=== PATIENT | female | born 1995 | race Caucasian/White ===

== ENCOUNTER 2024-02-22 16:01 | Inpatient (IN) | payer BC, SELFPAY ==
[2024-02-22 16:26] VITALS: BMI 34.0
[2024-02-22 16:49] VITALS: BP 125/78; PULSE 84; TEMP 37
[2024-02-22] MEDS: miSOPROStoL 25 MCG/0.25 TABLET VAGINAL ×2 (17:46→21:34)
--- NOTE | 2024-02-22 18:03 | PM.OBHPLI ---
OB - H&P: HPI Labor/Induction History of Present Illness Time Seen by Provider: 18:04 Date Seen: 02/22/24 Chief Complaint: The patient is a 28 year old 1 para 0 at 40 5/7 weeks gestation by 7wk US NOT c/w LMP, who presents for induction. Chief complaint: IOL- Postdates : 1 Para: 0 Date of last menstrual period: 05/06/23 Estimated date of delivery: 02/10/24 Gestational age based on last menstrual period: 42 Narrative: Opal Dubon is a 28 year old 1 para 0 at 40 5/7 weeks gestation by 7wk US NOT c/w LMP, who presents for post dates induction. Pt reports feeling well. No contractions. No LOF. No recent illness. History of Present Dating criteria: based on 1st trimester US only care: good care Ultrasounds: normal 1st trimester US and normal mid trimester US Medical complications: none Labs Blood type: A (+) positive Rubella: immune RPR/VDLR: nonreactive GBS status: negative HBsAG: negative Meds Home Medications and Allergies Home Medications ?Medication ?Instructions ?Recorded ?Confirmed ?Type ferrous sulfate 325 mg (65 mg 325 mg PO DAILY 02/22/24 02/22/24 History iron) tablet (Feosol) pren vit comb.1-iron cb-FA-DSS 90 tab PO 02/22/24 History mg-1 mg-50 mg tablet OB - H&P: Exam Physical Exam: Vital signs: Temp Pulse BP 98.6 F 84 125/78 02/22/24 16:49 02/22/24 16:49 02/22/24 16:49 Constitutional: Constitutional: no acute distress Routine HEENT Exam: Head: Present normal inspection Eye: Present normal appearance ENT: Present mucous membranes moist Routine Respiratory Exam: Respiratory: Present CTA bilaterally Routine Cardiovascular Exam: Cardiovascular: RRR Routine Exam: Perineum Description: Normal Detailed Labor and Delivery Exam: Patient Gravid: Yes Dilation (cm): 0 Contraction frequency (min): 5 Fetus (Single): Station: -3 Amniotic Membrane Status: intact Heart Rate Baseline: 150 Monitor Accelerations: Present Monitor Decelerations: None Group Home Variability: Moderate (6-25) Routine Skin Exam: Present intact Routine Neurological Exam: Present alert and oriented X3 Routine Psychiatric Exam: Present normal affect and normal thought process OB - Problem Based A/P Additional Plan (1) Term : Status: Acute Plan G1 at 40 5/7 wks here for induction for postdates -GBS negative -Cervix closed, start vaginal cytotec protocol. Reviewed plan with pt and she was in agreement. All ?'s answered. Delivery/Labor/Induction Plan Plan: induction Induction method: per misoprostol protocol
[2024-02-22 18:07] LABS: Hematocrit 34.3 % (33.0-51.0); Mean Corpuscular HGB Conc 32 gm/dL (32-36); Mean Corpuscular Hemoglobin 29 pg (26-34); Mean Corpuscular Volume 89 fL (80-100); Neutrophils Percent Auto 74.6 % (42.0-72.0); Platelet Count* 194 K/uL (140-440); RDW Coefficient of Variation % 14.7 % (11.5-15.5); Red Blood Count 3.86 m/uL (4.00-5.20); White Blood Count* 11.99 K/uL (4.50-11.00)
[2024-02-22 18:08] LABS: Basophils Percent Auto 0.1 % (0.0-3.0); Eosinophils Percent Auto 1.1 % (0.0-7.0); Immature Granulocytes Pct Auto 0.5 %; Lymphocytes Percent Auto 17.9 % (20-44); Monocytes Percent Auto 5.8 % (0.0-11.0); Slide Review Reflex No
[2024-02-22 21:04] VITALS: BP 122/81; PULSE 77; PULSE 78; TEMP 37.1; O2SAT 98
[2024-02-23] VITALS (85 sets, daily range): BP systolic 93–140; BP diastolic 50–91; PULSE 61–116; RESP 16; TEMP 36.6–37; O2SAT 90–100
[2024-02-23] MEDS: LACTATED RINGERS 1000 ML 1,000 ML 900 ML IV (02:30)
--- NOTE | 2024-02-23 07:16 | P.OBPN_ITS ---
Subjective Date Seen: 02/23/24 Narrative: Patient started induction overnight. Received cytotec x2 then developed frequent contractions and more discomfort. Exam this morning around 0500 was high, posterior and closed. I saw patient in the AM and discussed option for repeat SVE and balloon patient. Patient desired to wait for repeat SVE. She had significant pain overnight with vaginal exam. Encouraged either nitrous or morphine for comfort. Patient became more painful and opted for an epidural around 0900. Patient is more comfortable. Repeat SVE at 1130 was 5/100/-1. Contractions spaced from 1- 2min to 4-5min. Objective Exam: Baseline 140Moderate variability. Accels. No decels. Darek every 4- 5minutes Vital Signs: Last Vital Signs Temp 97.8 F 02/23/24 04:13 Pulse 69 02/23/24 04:13 BP 111/61 02/23/24 04:13 Pulse Ox 98 02/22/24 21:04 Assessment Assessment: induction ongoing Station: -1 Status: Category l Heart Rate Baseline: 150 Monitor Accelerations: Present Monitor Decelerations: None Plan Plan: - Recommend start Pitocin. - Plan for AROM once in active labor - Anticipate .
[2024-02-23] MEDS: LACTATED RINGERS 1000 ML 1,000 ML 995 ML IV (08:55)
[2024-02-23] MEDS: BUPIVACAINE 0.25% PF 10 ML 10 ML ML EPIDURAL (09:41)
[2024-02-23] MEDS: ROPIVACAINE 0.2% 100 ml 100 ML 12 MG EPIDURAL ×2 (09:42→17:20)
--- NOTE | 2024-02-23 09:55 | PM.ANBPRC ---
PFSH PFSH Social History What is your current living situation?: I presently have a place to live Problems where you live: no known problems In the past 12 months, utilities in danger of being shut off: no In past 12 months, lack of transportation kept you from medical appts, meetings, work, or getting things needed for daily living: no In the past 12 mos, have been you worried that your food would run out before you had money to buy more?: never true In the past 12 mos, the food you bought just didn't last and you didn't have money to buy more?: never true Smoking Status: Never smoker How often does anyone, including family, friends and others, physically hurt you: never How often does anyone, including family, friends and others, insult or talk down to you: never How often does anyone, including family, friends and others, threaten you with harm: never How often does anyone, including family, friends and others, scream or curse at you: never Meds Home Medications and Allergies Home Medications ?Medication ?Instructions ?Recorded ?Confirmed ?Type ferrous sulfate 325 mg (65 mg 325 mg PO DAILY 02/22/24 02/22/24 History iron) tablet (Feosol) pren vit comb.1-iron cb-FA-DSS 90 1 tab PO DAILY 02/22/24 02/23/24 History mg-1 mg-50 mg tablet Allergies Allergy/AdvReac Type Severity Reaction Status Date / Time No Known Drug Allergies Allergy Verified 02/23/24 07:03 Results Labs Labs: Laboratory Results - last 24 hr 02/22/24 18:04 WBC 11.99 H RBC 3.86 L Hgb 11.0 L Hct 34.3 MCV 89 MCH 29 MCHC 32 RDW Coeff of Janna 14.7 Plt Count 194 Neut % (Auto) 74.6 H Lymph % (Auto) 17.9 L [place] % (Auto) 5.8 Eos % (Auto) 1.1 Baso % (Auto) 0.1 Neut # (Auto) 8.90 H Lymph # (Auto) 2.10 [place] # (Auto) 0.70 Eos # (Auto) 0.10 Baso # (Auto) 0.00 Abs Immat Gran (auto) 0.10 Imm/Tot Granulo (auto) 0.5 Blood Type A Positive Antibody Screen NEGATIVE Vital Signs Vital Signs: Last Vital Signs Temp 98.5 F 02/23/24 07:33 Pulse 68 02/23/24 09:52 BP 127/78 02/23/24 09:52 Pulse Ox 100 02/23/24 09:50 Weight: 89.868 kg Height: 162.56 cm Anesthesia Procedures Epidural Insertion Patient Location: OB Start Time: 09:15 Stop Time: 09:51 Start Date: 02/23/24 Stop Date: 02/23/24 Reason for Block: procedure for pain Patient Position: sitting Performed By: Anthony Dumas Preanesthetic Checklist: IV checked, risks and benefits discussed, monitors and equipment checked, pre-op evaluation, timeout performed and anesthesia consent Prep: chlorhexidine gluconate Monitoring: blood pressure monitoring, continuous pulse oximetry and heart rate Approach: midline Vertebral Space: lumbar (1-5) Epidural Technique: KATY saline Needle Type: Tuohy needle Injection Technique: continuous catheter Needle gauge: 17 Needle Length (cm): 10 cm Needle Insertion Depth (cm): 8 Catheter Gauge: 19 Catheter Type: multi-orifice Catheter at skin depth (cm): 14 Test Dose Result: negative and lidocaine 1.5% with epinephrine 1 to 200,000
[2024-02-23] MEDS: LACTATED RINGERS 1000 ML 1,000 ML 125 ML IV ×2 (10:00→18:00)
[2024-02-23] MEDS: PHENYLEPHRINE 100 MCG/ML SYRINGE IVP (11:04)
[2024-02-23] MEDS: OXYTOCIN 30 unit/500 ML in NS 30 UNIT/500 ML BAG IVPB (13:33)
--- NOTE | 2024-02-23 20:51 | P.OBPN_ITS ---
Subjective Date Seen: 02/23/24 Narrative: Patient complete at 1729. Attempted AROM at that time. This was unsuccessful and planned to rupture during pushing if did not SROM. Patient started pushing at 1743. Patient has been pushing effectively. There is quite a bit of caput but suspect baby has poor position (suspect ROP). FHT is category 2 with minimal variability at times, occasionally improves to moderate variability with position changes and breaks from pushing. Contraction are regular. Patient does have some feeling but primarily prompted by staff to push. Objective Exam: FHT: Minimal variability, baseline 150 bpm, occasional accels, occasional late decels. Darek every 4 minutes. SVE: complete, +1 to +2, caput present Vital Signs: Last Vital Signs Temp 98.6 F 02/23/24 19:30 Pulse 95 02/23/24 20:37 Resp 16 02/23/24 18:16 BP 123/83 02/23/24 20:37 Pulse Ox 100 02/23/24 18:29 Assessment Assessment: active labor Station: +1 Status: Category ll Heart Rate Baseline: 150 Care Home Variability: Minimal (3-5) Monitor Accelerations: Present Monitor Decelerations: Late (occasional) Plan Plan: Patient has been pushing for over 3 hours, considering alternate options include vacuum or . Patient and baby are tolerating at this time, ok to continue current course for .
--- NOTE | 2024-02-23 22:33 | PM.OBPNL ---
Subjective Date Seen: 02/23/24 Narrative: Reviewed strip patient had minimal variability since about 1900 with occasional late decels - category II. Patient is tired and no longer pushing effectively. I recommend patient stop pushing. I consulted TITLE CURATIVE SPECIALIST to review and make appropriate recommendations for safe delivery. Dr Velázquez at bedside, recommended Caesarian delivery. Objective Vital Signs: Last Vital Signs Temp 98.6 F 02/23/24 22:18 Pulse 82 02/23/24 22:10 Resp 16 02/23/24 18:16 BP 111/56 L 02/23/24 22:10 Pulse Ox 100 02/23/24 18:29 Assessment Station: +1 Status: Category ll Heart Rate Baseline: 150 Senior Living Variability: Minimal (3-5) Monitor Accelerations: Present Monitor Decelerations: Late (occasional) Plan Plan: - TITLE CURATIVE SPECIALIST consult, plan for .
--- NOTE | 2024-02-23 23:04 | PM.OBCN1 ---
OB - CN: HPI Date of Consult Time Seen by Provider: 11:00 Date Seen: 02/23/24 Patient: Mehreen Patient Consult date: 02/23/24 Requesting Physician: Cornelia Mcdonough MD Primary Care Provider: Radha Bonilla DO Consult Narrative Reason for consult: arrest of labor and nonreassuring FHTs Narrative: The patient is a 28 year old woman at 40 weeks, 6 days gestation that was admitted to the Center on 02/22/24 for elective induction of labor. Thus far, this has consisted of Cytotec for cervical ripening followed by Pitocin for augmentation. She had an epidural for pain control this morning. She has been complete since 5:43 p.m.. She has been pushing most of this time since then, though Dr. Mcdonough reports that she had the patient take some breaks during these hours to promote recovery to normal heart rate tracing for the fetus. In the last 1/2 hour, strip has exhibited a baseline of 150 and moderate to minimal variability. There are some accelerations. No decelerations. However, there have been recurrent late decelerations at certain times, including from 9:20 p.m. through 9:35 p.m. At this time, her epidural is providing suboptimal pain control. . History History 1 Elective abortions Para 0 Spontaneous abortions Hx # Term Pregnancies Ectopic pregnancies Hx # Pregnancies Multiple births Number of Living Children 0 Labs Blood type: A (+) positive Rubella: immune RPR/VDLR: nonreactive GBS status: negative HBsAG: negative OB Labs: Lab Assessment Start: 02/22/24 16:05 Freq: ONCE Status: Active Protocol: PC.OBGBS Activity Type Activity Date Activity User E-sign Co-sign Detail Recorded Client Recorded Date Recorded By Document 02/22/24 16:28 CUDDYH Desktop 02/22/24 16:28 CUDDY 02/22/24 16:28 Lab Assessment GBS Status negative GBS Additional Criteria None No Treatment Needed OK Are Labs Available Yes Maternal Blood Type A Maternal RH Factor Positive Evaluate Maternal Rubella Immune Status Immune Hepatitis B Surface Antigen Negative Maternal HIV Status Negative Maternal Syphillis (RPR) Status Negative PFSH PFSH Social History What is your current living situation?: I presently have a place to live Problems where you live: no known problems In the past 12 months, utilities in danger of being shut off: no In past 12 months, lack of transportation kept you from medical appts, meetings, work, or getting things needed for daily living: no In the past 12 mos, have been you worried that your food would run out before you had money to buy more?: never true In the past 12 mos, the food you bought just didn't last and you didn't have money to buy more?: never true Smoking Status: Never smoker How often does anyone, including family, friends and others, physically hurt you: never How often does anyone, including family, friends and others, insult or talk down to you: never How often does anyone, including family, friends and others, threaten you with harm: never How often does anyone, including family, friends and others, scream or curse at you: never Meds Home Medications and Allergies Home Medications ?Medication ?Instructions ?Recorded ?Confirmed ?Type ferrous sulfate 325 mg (65 mg 325 mg PO DAILY 02/22/24 02/22/24 History iron) tablet (Feosol) pren vit comb.1-iron cb-FA-DSS 90 1 tab PO DAILY 02/22/24 02/23/24 History mg-1 mg-50 mg tablet Allergies Allergy/AdvReac Type Severity Reaction Status Date / Time No Known Drug Allergies Allergy Verified 02/23/24 07:03 OB - H&P: Exam Physical Exam: Vital signs: Temp Pulse Resp BP Pulse Ox 98.6 F 78 16 120/66 100 02/23/24 22:18 02/23/24 22:37 02/23/24 18:16 02/23/24 22:37 02/23/24 18:29 Narrative: Physical exam: Vitals as noted above. General: In pain during contractions, appears very tired Psych: Alert and oriented x 3, full affect HEENT: Normocephalic, atraumatic Abdomen: Soft, nontender, gravid, cephalic lie, EFW 8.5 lb by Omid Pelvic exam: Mons normal, clitoris normal, urethral meatus normal. Labia slightly swollen.. Perineum and anus normal appearance. Vaginal introitus normal appearance. Sterile vaginal exam: Complete, skull at around +1 with caput at around +2. I suspect OA presentation on exam. OB - CN: A/P Assessment and Plan (1) Term : Status: Acute (2) Arrested labor: Status: Acute Plan Arrest of descent in a patient with a 2nd stage now 5.5 hours long. Also with intermittently nonreassuring status. I do not change control specialist the head to be low enough to assure successful operative vaginal delivery. For this reason, I recommended primary for arrest of descent. Patient agrees with this plan. We discussed risks of procedure, including bleeding/hemorrhage, infection, damage to internal organs, risks of thromboembolism, scarring, and her likely recovery. Consent form was reviewed with and signed by patient.
[2024-02-23] MEDS: AZITHROMYCIN 500 MG in 0.9 % SODIUM CHLORIDE 250 ml 250 ML 255 MG IVPB (23:09)
[2024-02-23] MEDS: TERBUTALINE 1 MG/ML INJ 0.25 MG SUBCUT (23:10)
[2024-02-23] MEDS: ONDANSETRON 2 MG/ML inj 4 MG IV (23:17)
[2024-02-23] MEDS: CEFAZOLIN 2 GM INJ IVP (23:45)
[2024-02-24] VITALS (42 sets, daily range): BP systolic 106–143; BP diastolic 49–81; PULSE 81–106; RESP 16–18; TEMP 36.7–36.8; O2SAT 97–100
--- NOTE | 2024-02-24 00:24 | W.ANESCHARGE ---
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
--- NOTE | 2024-02-24 00:25 | P.NB_ITS ---
Nerve Block Nerve Block Time Seen by Provider: 01:20 Date Seen: 02/24/24 Type of block requested by surgeon for post-operative analgesia: TAP Side: bilateral Time out performed: Yes Verification of patient name: Yes Verification of date of : Yes Site marking: site marked Name of person performing procedure: Blake Ny Continuous monitoring Was continuous monitoring of O2 sat, B/P, baler operator, recorded every 15 minutes?: Yes Procedure Checklist: sterile prep, needles and gloves Ultrasound guided. Images saved: Yes Medications given in 5ml increments after negative aspiration: Marcaine %: 0.25 mL: 30 Needle gauge: 20 and Exparel mL: 10 Needle gauge: 20 Patient tolerated procedure well: Yes Additional comments: Injected in 5ml increments after negative aspiration Block Charges Block Charge (with Pro Fee): TAP Bilateral Use of Ultrasound Machine for Block: Yes- US Guidance/pain block
--- NOTE | 2024-02-24 01:08 | P.OBPRC_ITS ---
Procedure Date of procedure: 02/24/24 Pre-op diagnosis: Arrest of descent with nonreassuring status Post-op diagnosis: same Procedure Done: only Will [facility] bill your pro fee for this procedure?: Yes Blood Loss Measurement Type: QBL (1360 mL) Bakri Used: No IV fluids (mL): 1,200 Urine Output (mL): 200 Urine Output Comment: Blood tinged Surgeon: Ness Velázquez MD Anesthesia Type: Epidural Findings: 1. Female infant, cephalic OA presentation, Apgars of 8 and 9, weight 7 lb, 10 oz 2. Normal appearance of bilateral tubes and ovaries. Procedure Name: Primary low-transverse Procedure Description: Patient was taken to the operating room with IV running. She received cefazolin and azithromycin in preoperative prophylaxis. Epidural anesthesia had previously been administered. Mejia catheter was previously inserted. Prior to vaginal prep, I elevated the 's vertex up into the pelvis as much as possible through the vagina. Patient was prepped and draped in the usual sterile fashion. Anesthesia was tested and found to be adequate. A low-transverse skin incision was made with a scalpel and carried through to the underlying layer of fascia with the Bovie. There are many bleeding vessels in this layer that were coagulated. The subcutaneous fat was dissected off the underlying fascia bluntly. The fascia was nicked in the midline with a scalpel, and this incision was extended laterally with scissors. Again, several bleeding vessels were encountered lying just beneath the fascia. The rectus sheath was dissected sharply away from the lower aspect of the rectus muscles. The rectus muscles were in the midline. Peritoneum was identified and entered bluntly. Bovie was used to widen this opening laterally. Hilario O retractor was inserted and tightened down, providing excellent visualization of the lower uterine segment. The bladder reflection was found to be advanced along the lower uterine segment. A bladder flap was created with a combination of sharp and blunt dissection. Low-transverse uterine incision was made with a scalpel. Incision was widened bluntly. The 's head was grasped through the hysterotomy and delivered with the help of fundal pressure. The remainder of the body delivered without incident. Cord was clamped and cut after 30 seconds. was handed off to attending pediatrics provider, Dr. Mcdonough. The placenta was delivered with gentle traction on the cord. The uterus was cleaned of all clots and debris with the dry lap pad. It was then that the leftward extension of the hysterotomy was noted. Visualization was difficult due to heavy bleeding. Ultimately, a whipstitch was used with a running, locked suture of 0 Vicryl proceeding from the left word, inferior aspect of the incision laterally and downward until the apex was reached. This same approach was used on the superior aspect, delineating the borders of the extension. The extension was then closed with 0 Vicryl in a running, locked fashion, followed by the hysterotomy itself. Heavy bleeding was still noted inferior to the extension on the left side of the cervix. The uterus was exteriorized. The bladder flap was further dissected downward to aid in visualization. A malleable retractor was placed in the cul-de-sac, just behind the area in q uestion, to protect intestines from any damage. Several iknfxg-sp-welcc sutures were placed in this area, and ultimately a bleeding vessel was visually identified and hemostasis achieved with sutures of 0 Vicryl. Second layer of the same suture was used in imbricating fashion to obtain hemostasis. The adnexa were examined and noted to be normal in appearance. The malleable retractor was removed, and there was a serosal defect caused by this along the posterior aspect of the uterus that was oozing slightly and treated with Bovie, then Yosvany hemostatic agent. At this time, uterine atony was also noted, and this was addressed with Methergine in addition to the Pitocin that was already running. She was also treated with a single dose of TXA. The cul-de-sac and gutters were cleansed with a laparotomy sponge, removing any further clots and debris. The uterus was returned to the abdomen. The area surrounding bleeding vessel adjacent lowest extent of the hysterotomy extension was re-examined and found to be hemostatic. Gelfoam was placed at this site. The serosa along the left aspect of the incision was quite disrupted, and there were some raw areas superior to the incision that were treated with Yosvany hemostatic agent. The Hilario O retractor was removed. The hysterotomy was reexamined and found to be hemostatic. The peritoneum was reapproximated with 2 0 Vicryl in a running fashion. The rectus muscles were examined and found to be hemostatic. The fascia was reapproximated with 0 Vicryl in a running fashion. Subcutaneous fat was irrigated and Bovie used on oozing vessels. The subcutaneous fat was reapproximated with 2 0 plain gut suture in an interrupted fashion. The skin was closed with a subcuticular stitch of 4-0 Monocryl. Surgical glue was applied a sofia this. Patient tolerated procedure well was taken to recovery area in stable condition. Complications: Leftward extension of hysterotomy into the cervix. Uterine atony. Intrapartum hemorrhage of 1360 mL Pathology: specimen obtained, sent to pathology Surgery Debrief Performed: Yes Surgery Debrief Comment: I verbally confirmed by request to send placenta to pathology for indication of nonreassuring status Condition: stable total score - 1 minute: 8 total score - 10 minute: 9
[2024-02-24] MEDS: LACTATED RINGERS 1000 ML 1,000 ML 125 ML IV ×2 (01:15)
[2024-02-24 01:23] LABS: Hematocrit 33.2 % (33.0-51.0); Hemoglobin* 10.3 gm/dL (12.0-16.0); Immature Granulocytes Pct Auto 1.6 %; Lymphocytes Percent Auto 4.1 % (20-44); Mean Corpuscular HGB Conc 31 gm/dL (32-36); Mean Corpuscular Hemoglobin 28 pg (26-34); Mean Corpuscular Volume 91 fL (80-100); Monocytes Percent Auto 5.1 % (0.0-11.0); Neutrophils Percent Auto 89.2 % (42.0-72.0); Platelet Count* 184 K/uL (140-440); Red Blood Count 3.66 m/uL (4.00-5.20)
[2024-02-24 01:33] LABS: White Blood Count* 26.31 K/uL (4.50-11.00)
[2024-02-24 01:40] LABS: INR 1.01 (0.91-1.10); Partial Thromboplastin Time* 25 Seconds (23-33); Prothrombin Time 13.9 Seconds
[2024-02-24 01:41] LABS: Fibrinogen* 476 mg/dL (200-450)
[2024-02-24] MEDS: ACETAMINOPHEN 500 MG TABLET 1000 MG PO ×3 (03:48→23:02)
[2024-02-24 04:44] LABS: Slide Review Reflex No
[2024-02-24 05:22] LABS: Hemoglobin* 9.9 gm/dL (12.0-16.0)
[2024-02-24] MEDS: KETOROLAC 30 MG/ML inj IVP ×2 (06:38→19:59)
--- NOTE | 2024-02-24 08:22 | P.OBPN_ITS ---
OB - PN:Subj Subjective Time Seen by Provider: 08:22 Date Seen: 02/24/24 Interval history: Ms. Fisher is a 28yo seen on POD0 from primary delivery for arrest of descent. Delivery was complicated by extension of the hysterotomy to the left side of the cervix and PPH (QBL 1.3L). Time of was exactly midnight. Immediate post-op course was notable for some hematuria noted via aguirre, improving. Opal is feeling well overall. She notes minimal abdominal/pelvic pain. She is tolerating PO intake, where she's had crackers and had few bites of pancakes this morning. Denies nausea/vomiting. Lochia is described as small/appropriate by patient and RN report. She has not yet passed gas or BM. Voiding via aguirre, yellow urine noted without hematuria. She has not yet trialed sitting at the edge of bed, standing or ambulation. Opal is breast feeding baby Rishabh. She notes this is going well thus far. OB - PN: Obj Exam Physical Exam: Vital signs: Temp Pulse Resp BP Pulse Ox O2 Del Method 98.2 F 86 18 124/78 99 Room Air 02/24/24 01:23 02/24/24 06:30 02/24/24 06:30 02/24/24 04:00 02/24/24 06:30 02/24/24 06:30 Narrative: General: Alert and oriented, in no acute distress Psych: Appropriate mood and affect Abdomen: Soft, non-distended. Minimal discomfort to palpation in the lower quadrants, consistent with post-op state. No rebound or guarding. Fundus at umbilicus. Surgical dressing in place, clean/dry. Perineum: Brief examination of her pad performed after my fundal check, clean/dry. Lower extremities: Non-tender or erythematous. SCDs on. Urinary Catheter Management: Urethral: Cath placed during this visit: yes Urethral indwelling: Yes Reason for continuing: surgical procedure Insertion date: 02/23/24 Insertion time: 23:30 OB - PN: Obj Data Labs Labs: Laboratory Results - last 24 hr 02/24/24 02/24/24 01:10 05:05 WBC 26.31 H* RBC 3.66 L Hgb 10.3 L 9.9 L Hct 33.2 MCV 91 MCH 28 MCHC 31 L RDW Coeff of Janna 15.0 Plt Count 184 Neut % (Auto) 89.2 H Lymph % (Auto) 4.1 L [place] % (Auto) 5.1 Eos % (Auto) 0.0 Baso % (Auto) 0.0 Neut # (Auto) 23.50 H Lymph # (Auto) 1.10 [place] # (Auto) 1.30 H Eos # (Auto) 0.00 Baso # (Auto) 0.00 Abs Immat Gran (auto) 0.40 H Imm/Tot Granulo (auto) 1.6 INR 1.01 APTT 25 Fibrinogen 476 H OB - PN: A/P Delivery Assessment and Plan (1) Term : Status: Acute (2) Arrested labor: Status: Acute Plan Ms. Fisher is a 28yo seen on POD0 from primary delivery for arrest of descent at 41w0d. was uncomplicated. Delivery complicated by extension of hysterotomy to the cervix and PPH, s/p surgical repair and TXA, methergine and pitocin. Post-op course has been unremarkable. She had hematuria which has cleared through time, now is clear/yellow. Adequate UOP. No significant abdominal/pelvic pain. Lochia is small/appropiate. Fundus firm at umbilicus. She is working on PO intake, has not yet trialed ambulation. Goals today include rest/bonding and progressing through post-op milestones, particularly ambulation. Post-op Hgb was 9.9, where she was cleared to receive IV toradol. VS are WNL and UOP appropriate, consider repeat labs if this were to change or with increased vaginal bleeding. Dispo: inpatient, discussed typical discharge on POD2-3 Plan day: 0 Plan: routine care
[2024-02-24] MEDS: DOCUSATE SODIUM 100 MG CAPSULE PO (11:23)
[2024-02-24] MEDS: FERROUS SULFATE 325 MG TABLET 650 MG PO (13:56)
[2024-02-24 18:31] LABS: Rapid Plasma Reagin (RPR) Non Reactive (Non Reactive)
[2024-02-24] MEDS: SIMETHICONE 80 MG TAB.CHEW PO (19:58)
[2024-02-25 00:30] VITALS: RESP 16; O2SAT 98
[2024-02-25] MEDS: IBUPROFEN 600 MG TABLET PO ×2 (02:20→09:16)
[2024-02-25] MEDS: ACETAMINOPHEN 500 MG TABLET 1000 MG PO ×2 (06:19→13:50)
[2024-02-25 08:59] VITALS: BP 119/75; PULSE 89; RESP 18; TEMP 36.7; O2SAT 97
[2024-02-25] MEDS: DOCUSATE SODIUM 100 MG CAPSULE PO (09:16)
--- NOTE | 2024-02-25 11:25 | P.DS_ITS ---
DS: Providers Provider Time Seen by Provider: 11:25 Date Seen: 02/25/24 Date of admission: 02/22/24 16:01 Primary care physician: Radha Bonilla DO Admitting Clinician: Latosha Ibarra DO Consults: 02/23/24 22:32 Consult to Physician [CONS] Stat Comment: Consulting Provider: Ness Velázquez Has provider been notified: Yes Attending Physician on discharge: Cornelia Mcdonough MD Exam Narrative: Exam Narrative: General: Alert and oriented, no acute distress Psych: Appropriate mood and affect Abdomen: Soft, nondistended. Mildly tender to palpation in the bilateral lower quadrants, consistent with postoperative state. Fundus at 1 below umbilicus. Surgical dressing has been removed, incision is well approximated without erythema, ecchymosis or drainage. Extremities: Trace bilateral edema. Nontender, non erythematous calves. Const: Vital Signs, click to edit/add: Vital Signs - 24 hr 02/24/24 11:30 02/24/24 12:30 02/24/24 13:30 Temperature Pulse Rate [Left P ulse Oximeter] Respiratory Rate 16 16 16 Blood Pressure [Le ft Arm] Pulse Oximetry Oxygen Delivery Me thod 02/24/24 13:59 02/24/24 14:30 02/24/24 15:30 Temperature 98.2 F Pulse Rate [Left P ulse Oximeter] 84 Respiratory Rate 16 16 16 Blood Pressure [Le ft Arm] 113/74 Pulse Oximetry 99 Oxygen Delivery Me thod Room Air 02/24/24 16:28 02/24/24 16:30 02/24/24 17:30 Temperature 98.3 F Pulse Rate [Left P ulse Oximeter] 84 Respiratory Rate 16 16 16 Blood Pressure [Le ft Arm] 121/68 Pulse Oximetry 99 Oxygen Delivery Me thod Room Air 02/24/24 18:30 02/24/24 19:30 02/24/24 20:00 Temperature 98.3 F Pulse Rate [Left P ulse Oximeter] 106 H Respiratory Rate 16 16 16 Blood Pressure [Le ft Arm] 116/71 Pulse Oximetry 97 Oxygen Delivery Me thod Room Air 02/24/24 20:30 02/24/24 21:30 02/24/24 22:30 Temperature Pulse Rate [Left P ulse Oximeter] Respiratory Rate 16 16 16 Blood Pressure [Le ft Arm] Pulse Oximetry Oxygen Delivery Me thod 02/24/24 23:30 02/24/24 23:42 02/25/24 00:30 Temperature 98.1 F Pulse Rate [Left P ulse Oximeter] 98 Respiratory Rate 16 16 16 Blood Pressure [Le ft Arm] 109/75 Pulse Oximetry 97 Oxygen Delivery Me thod Room Air 02/25/24 08:59 Temperature 98.0 F Pulse Rate [Left P ulse Oximeter] 89 Respiratory Rate 18 Blood Pressure [Le ft Arm] 119/75 Pulse Oximetry 97 Oxygen Delivery Me thod Room Air OB - DS: Summary Hospital Course Hospital Course: The patient is a 28 year old G 1 P 1 at 41 weeks gestation that was admitted to the Center on 02/22/24 for IOL for late term gestation. Intrapartum course was complicated by arrest of descent. She had a primary delivery with Dr. Velázquez at midnight on 02/24/24, complicated by PPH secondary to tissue trauma (extension to cervix). She delivered a viable female . She is breast feeding. the patient has done well. This morning, Opal is feeling well. She notes her pain is well controlled on ibuprofen and Tylenol. She is not needed any postop oxycodone. She is tolerating p.o. intake without nausea or vomiting. Voiding spontaneously without difficulty, no hematuria. She is passing gas, no bowel movement yet. Ambulates without dizziness or lightheadedness. Lochia has been of small volume and appropriate per both patient and RN. Hemoglobin this morning is 9.0 (from 9.9), consistent with anticipated equilibration after PPH. VS are entirely within normal limits, UOP adequate. Meeting all appropriate post-op milestones as above. Nilton Keating is successfully. Opal is motivated to discharge to home early today, as she is feeling well and due to her prolonged hospitalization. Nilton Keating has been cleared for dismissal by Dr. Armstrong. Encouraged patient to stay through the afternoon to ensure she continues to feel well. Discussed she can certainly stay another night in the hospital if she has any hesitation. She affirmed her desire to discharge this evening. Peripartum Data delivery method: Primary C/S; Labored Procedures: Procedures Operation Date: 02/23/24 22:30 Actual Procedure Side Surgeon p Primary Low Transverse Section Not Applicable Ness Velázquez MD [place] Gender: Female Time Spent with Patient Time attestation: Total time spent providing and/or coordinating discharge services: Discharge Plan Discharge Disposition: Home, Self-Care Date of Admission: 02/22/24 16:01 Consulting Providers: Ness Velázquez Primary Care Provider: Radha Bonilla Condition: Stable Anticipated Discharge Date/Time: 02/25/24 17:00 Discharge Medications: New oxycodone 5 mg Tablet 5 mg PO Q4H PRN (Reason: Pain) Qty: 10 0RF Continued pren vit comb.1-iron cb-FA-DSS 90-1-50 mg tablet 1 tab PO DAILY ferrous sulfate [Feosol] 325 mg (65 mg iron) tablet 325 mg PO DAILY Discharge Orders: Discharge Order (Routine); Ordered 02/25/24 Ordered By: Jacki Obrien Additional Instructions: Discharge instructions were reviewed with the patient including signs and symptoms of infection and home going medications Lifting Restrictions: 20 pounds for 6 weeks No not submerge incision under water X 2 weeks? Nothing vaginally for 6 weeks: no tampons or intercourse Do not drive while taking narcotic pain medication(s) Off Work or School for 8 weeks Symptoms to report to doctor: * Bleeding that saturates more than one pad per hour * Passing clots larger than the size of a golf ball * Pain not relieved by prescribed medication * Fever above 100.4 degrees Fahrenheit * A foul vaginal odor * Difficulty in emotions, mood, and functions * Thoughts of hurting yourself and/or * Painful, reddened area in your breast * Any drainage, redness, or tenderness in your IV/epidural site * Severe headache that doesn't improve after taking medications * Changes in vision, including temporary loss of vision, blurred vision, and/or light sensitivity * Upper abdominal pain (usually under ribs on the right side) * Decrease in urination or painful, frequent urinating * Chest pain * Shortness of breath * Tenderness or pain with redness and/swelling in the calf(s) of your leg Optional 2-week visit: incision check, discuss feeding concerns, review control options and screen for anxiety/depression. 6-week visit for an annual exam. consultation services are available to all mothers and babies for the first year after delivery.? To make an appointment, please call [phone]. Discharge Diet: Regular Follow Up Appointments: Radha Bonilla DO [Primary Care Provider] - Forms: My[facility] Info Instructions
[2024-02-25 13:42] VITALS: BP 117/73; PULSE 85; RESP 18; TEMP 36.8; O2SAT 99
[2024-02-25] MEDS: SIMETHICONE 80 MG TAB.CHEW PO (13:50)
== END 2024-02-25 16:20 | disposition home or self-care (01) | DRG 540 ==
PROVIDERS: Obstetrics & Gynecology; Admitting Provider Family Medicine; PCP Family Medicine; Visit Provider Student in an Organized Health Care Education/Training Program
PROC: (CPT 59514; principal; 2024-02-23 22:15)
DX: O48.0 Post-term pregnancy (principal); O76 Abnormality in fetal heart rate and rhythm complicating labor and delivery; O32.4XX0 Maternal care for high head at term, not applicable or unspecified; O72.1 Other immediate postpartum hemorrhage; O62.1 Secondary uterine inertia; O71.3 Obstetric laceration of cervix; G89.18 Other acute postprocedural pain; R31.9 Hematuria, unspecified; Z37.0 Single live birth; Z3A.40 40 weeks gestation of pregnancy
CPT/HCPCS: 01967; 01968; 36415; 51701; 59200; 64488; 76815; 76942; 85018; 85025; 85384; 85610; 85730; 86592; 86850; 86900; 86901; 88307; 99140; A9270; C9290; J0456; J0665; J0690; J1885; J2274; J2371; J2405; J2590; J2795; J3010; J3105; J7050; J7120

== ENCOUNTER 2024-02-27 11:16 | Outpatient (CLI) | payer BC, SELFPAY ==
--- NOTE | 2024-02-27 12:53 | P.LACCB_ITS ---
Consult Note - Mom Date of Visit Date of visit: 02/27/24 sap solution manager consultant: Birgit Jose Visit Code: Visit Patient's Information Phone number: [phone] : 1 Para: 1 Allergies No Known Drug Allergies Allergy (Verified 02/23/24 07:03) Delivery Information Delivery type: Primary C/S; Labored Weeks Gestation: 41 Gestational Age: AGA Weight: 3.45 kg Discharge Weight: 3.28 kg (5% weight loss) Baby's Information Medications: none Baby's Age at Visit: 3 days Baby's Provider or Clinic: [facility] Jaundice: Yes (to chest) Reason for Consult Reason for Consult: mom with painful nipples, questioning tongue tie, baby at 10% weight loss at clinic today Past Experience Past Experience: No Current Frequency of Day Feedings: every 2-3 hours Frequency of Night Feedings: every 2-3 hours Both Breasts: No (nursing one side for 20-30 minutes) Suck: strong if she gets going Latch: shallow, mom using nipple shield Length of Time: 20-30 min/feed Pumping Pumping: No (has a Motif at home) Supplementing EMB Supplement: No Formula Supplement: No Baby Elimination Number of Wet Diapers a Day: 3 Number of BM a Day: 1 Breast/Nipple Condition Breast Information: Breasts are symmetrical with rounded lower quadrants, intramammary distance is less than 1.5 inches. No erythema. Nipples are supple, right side slight more flat than left side, both nipples with bruising and cracks noted. Engorgement: No Maternal Nipple Condition - Left: Common Nipple and Cracking/ Fissures Maternal Nipple Condition - Right: Short and Cracking/ Fissures Sore Nipples: Yes Interventions for Sore Nipples: [place] Onsite Pre-Feed weight: 3.204 kg (dressed, no naked weight since was just at clinic) Post-Feed weight: 3.222 kg Milk Transferred (mL): 18 (after 10 minutes nsg on left side, came off on her own; offered 2nd side but not interested) Pre-Nursing Left Nipple: Within Normal Limits and Crusting/Scabs Pre-Nursing Right Nipple: Within Normal Limits and Crusting/Scabs Post-Nursing Left Nipple: Within Normal Limits Assessments/Interventions Assessments/Interventions: Worked with mom/taught asymmetrical latch technique with breast sandwich for a wide, deep latch and mom reports increased comfort with this. Mom able to achieve this in cross cradle hold; baby nursed for 10 minutes without coming on and off the breast. Audible swallows heard. Mom's nipple rounded when baby comes off breast, milk traces noted on breast and in baby's mouth. Babe transferred 18 ml in that 10 minutes. Mom offered 2nd side, babe not interested, kept lips pursed shut. Offered with nipple shield as mom's right nipple is flatter, and babe still not interested. Discussed normals of ; milk coming in, regulation of supply, use of pump to relieve fullness if needed, and pumping to have EBM as needed for supplementing until baby gaining weight well. Discussed feeding plan for mom/babe since baby at 10% weight loss. Mom to offer feeding every 2-3 hours, expect some cluster feeding. Offer both breasts at each feeding; 10-15 min/side to increase volume taken. Mom to pump 2nd side to et 1/2-1oz of EBM to offer baby if baby won't nurse second side. Discussed paced bottle feeding to offer supplement to help babe go back and forth between breast and bottle. Discussed SNS and finger feeding as well; parents prefer bottle for supplemental feedings. Ibuprofen for mom ok to help decrease breast discomfort as needed. Nipple care reviewed as well. Mom to call for f/u if needed/desired depending on how next 1-2 days go with feeding changes outlined above. Babe does have a slight tight frenulum; not heart shaped, latches well with new technique and mom reports less pain. Discussed all this in relation to tongue clipping; would not encourage yet given this improvement. Reevaluate in 2-3 days. Mom and dad comfortable with this plan. Time spent reviewing hospital records and face to face with mom, dad and baby: 75 minutes Meds Home Medications and Allergies Home Medications ?Medication ?Instructions ?Recorded ?Confirmed ?Type ferrous sulfate 325 mg (65 mg 325 mg PO DAILY 02/22/24 02/22/24 History iron) tablet (Feosol) pren vit comb.1-iron cb-FA-DSS 90 1 tab PO DAILY 02/22/24 02/23/24 History mg-1 mg-50 mg tablet Allergies Allergy/AdvReac Type Severity Reaction Status Date / Time No Known Drug Allergies Allergy Verified 02/23/24 07:03
== END 2024-02-27 11:17 | disposition home or self-care (01) ==
LOC: OB LAC 11:18
PROVIDERS: PCP Family Medicine; Visit Provider Student in an Organized Health Care Education/Training Program
DX: Z39.1 Encounter for care and examination of lactating mother (principal)
CPT/HCPCS: G0463

== ENCOUNTER 2024-04-16 20:36 | Emergency (ER) | payer BC, SELFPAY ==
[2024-04-16 20:41] VITALS: BP 138/82; PULSE 77; RESP 16; TEMP 36.7; O2SAT 99; BMI 28.7
--- NOTE | 2024-04-16 21:03 | CRLHL7_ITS ---
For Patients: As a result of the Century Cures Act, medical imaging exams and procedure reports are released immediately into your electronic medical record. You may view this report before your referring provider. If you have questions, please contact your health care provider. INDICATION: Severe right pelvic pain.. TECHNIQUE: Ultrasound pelvis transabdominal and transvaginal for better assessment or to better visualize the endometrium. Real-time sonographic images with spectral and color Doppler imaging of the ovaries were obtained. COMPARISON: None. FINDINGS: Uterus: 6.2 x 3.4 x 5.8 cm. Unremarkable echotexture of the myometrium. No masses. Endometrium: Transvaginal imaging was performed to better evaluate the endometrium. Endometrial thickness measures 3 mm. No sign of endometrial mass or fluid. Right ovary 3.4 x 1.4 x 1.5 cm. Left ovary 3.8 x 1.3 x 1.9 cm. No ovarian or adnexal masses. Normal arterial and venous blood flow is demonstrated in both ovaries. Cul-de-sac: No significant free fluid. IMPRESSION: Unremarkable appearance of the uterus and ovaries. No evidence of ovarian torsion. Dictated by Marcus Miller MD @ 04/16/2024 11:13:27 PM (Electronically Signed)
--- NOTE | 2024-04-16 21:18 | ED_ITS ---
HPI - Abdominal Pain General Date Seen: 04/16/24 Chief Complaint: Abdominal Pain Stated Complaint: lower r abd pain - radiate to back Time Seen by Provider: 04/16/24 20:56 Source: patient Mode of arrival: ambulatory Limitations: no limitations History of Present Illness HPI narrative: Patient is a 28-year-old female who is 7 weeks for a presenting for right groin pain. She states she started having some pelvic dullness yesterday but then today around 16:00 she had acute severe 9/10 pain to the right pelvis that is gradually rate being up to her right flank. Has had associated nausea from the pain and vomited twice. Denies ever having pain like this before. States she still has both ovaries. No other abdominal surgeries noted. Has not had any diarrhea, constipation, fevers, chills, headache, chest pain, shortness of breath. States she had some mild lightheadedness this morning but that has since resolved. Last ate a meal around noon she states. Try to take some Tylenol for pain but instantly vomited up she states. No other concerns noted Related Data Home Medications ?Medication ?Instructions ?Recorded ?Confirmed ferrous sulfate 325 mg (65 mg 325 mg PO DAILY 02/22/24 03/08/24 iron) tablet (Feosol) pren vit comb.1-iron cb-FA-DSS 90 1 tab PO DAILY 02/22/24 03/08/24 mg-1 mg-50 mg tablet cholecalciferol (vitamin D3) 50 50 mcg PO QDAY 03/08/24 03/08/24 mcg (2,000 unit) capsule Previous Rx's ?Medication ?Instructions ?Recorded tamsulosin 0.4 mg capsule 0.4 mg PO DAILY #7 caps 04/17/24 Allergies Allergy/AdvReac Type Severity Reaction Status Date / Time No Known Drug Allergies Allergy Verified 04/16/24 22:48 Review of Systems Status of ROS Reports: 10 or more systems reviewed and unremarkable except as noted in History and below PFSH PFSH Surgical History S/P ACL repair ?Z98.890 - Other specified postprocedural states (ICD-10) Family History Other Breast cancer Colon cancer Social History Narrative: 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 She has an associates degree She exercises 3 days a week by walking and doing light exercise She does not smoke or use recreational drugs She has not been drinking during or What is your current living situation?: I presently have a place to live Problems where you live: no known problems In the past 12 months, utilities in danger of being shut off: no In past 12 months, lack of transportation kept you from medical appts, meetings, work, or getting things needed for daily living: no In the past 12 mos, have been you worried that your food would run out before you had money to buy more?: never true In the past 12 mos, the food you bought just didn't last and you didn't have money to buy more?: never true Smoking Status: Never smoker Non-prescribed substance use: denies use How often does anyone, including family, friends and others, physically hurt you : never How often does anyone, including family, friends and others, insult or talk down to you: never How often does anyone, including family, friends and others, threaten you with harm: never How often does anyone, including family, friends and others, scream or curse at you: never Exam Narrative: Exam Narrative: Const: Well-nourished, Well-developed, in moderate distress Eyes: PERRL, no conjunctival injection, and symmetrical lids HENT: Atraumatic external nose and ears. Moist mucous membranes. Neck: Symmetric, trachea midline, No thyromegaly. CVS: RRR, No murmurs or gallops. Peripheral pulses 2+ and equal in all extremities RESP: Unlabored respiratory effort. Clear to auscultation bilaterally. GI: Nontender/Nondistended, No rebound or guarding. No tenderness at McBurney's point, no CVA tenderness MSK:Extremities w/o deformity, Normal Active ROM Skin: Warm, Dry. No rashes or lesions. Neuro: Normal Muscle tone, No focal neurological deficits. Psych: Awake, Alert, & Oriented x3. Appropriate mood and affect. Const: Vital Signs, click to edit/add: Vital Signs - 24 hr 04/16/24 20:41 Temperature 98.0 F Pulse Rate [Right Pulse Oximeter] 77 Respiratory Rate 16 Blood Pressure [Ri ght Upper Arm] 138/82 Pulse Oximetry 99 Oxygen Delivery Me thod Room Air Course Vital Signs Vital signs: Initial Vital Signs Temperature 98.0 F 04/16/24 20:41 Temperature Source Temporal Artery Scan 04/16/24 20:41 Pulse Rate 77 04/16/24 20:41 Pulse Rhythm Regular 04/16/24 20:41 Respiratory Rate 16 04/16/24 20:41 Blood Pressure 138/82 04/16/24 20:41 Blood Pressure Mean 100 04/16/24 20:41 Blood Pressure Position Sitting 04/16/24 20:41 Pulse Oximetry 99 04/16/24 20:41 Oxygen Delivery Method Room Air 04/16/24 20:41 Vital Signs Temperature 98.0 F 04/16/24 20:41 Pulse Rate 77 04/16/24 20:41 Respiratory Rate 16 04/16/24 20:41 Blood Pressure 138/82 04/16/24 20:41 Pulse Oximetry 99 04/16/24 20:41 Oxygen Delivery Method Room Air 04/16/24 20:41 Temperature 98.0 F 04/16/24 20:41 Pulse Rate 77 04/16/24 20:41 Respiratory Rate 16 04/16/24 20:41 Blood Pressure 138/82 04/16/24 20:41 Pulse Oximetry 99 04/16/24 20:41 Oxygen Delivery Method Room Air 04/16/24 20:41 Medications Administered Medications: Discontinued Medications Generic Name Dose Route Start Last Admin Trade Name Freq PRN Reason Stop Dose Admin Sodium Chloride 500 mls @ 1,000 mls/hr 04/16/24 22:17 04/16/24 23:40 0.9 % Sodium Chloride 500 Ml IV 04/16/24 22:46 Infused .Q30M ONE Infusion Morphine Sulfate 4 mg 04/16/24 22:17 04/17/24 00:05 Morphine 4 Mg/Ml Inj IVP 04/16/24 22:18 Not Given ONCE ONE Ondansetron HCl 4 mg 04/16/24 22:17 04/17/24 00:05 Ondansetron 2 Mg/Ml Inj IVP 04/16/24 22:18 Not Given ONCE ONE MDM - Abdominal Pain MDM Narrative Medical decision making narrative: Patient is a 28-year-old female presenting to emergency department for right- sided pelvic and flank pain. My 1st concern concerning the pain is in her pelvic region is he could have an ovarian torsion especially concerning the pain was so started. Ultrasound was called in the immediate ultrasound for ovarian torsion was ordered. Then read was negative and her pain actually resolved once the ultrasound was done. This is reassuring. Now my concerns also include appendicitis, pyelonephritis, nephrolithiasis. Will do CT scan to better evaluate. Will also do urinalysis, CBC, CMP, COVID/flu. Since she is currently breast feeding will give her morphine for pain and Zofran for nausea along with I L of normal saline. CBC and CMP showed no concerning abnormalities. COVID/flu/RSV swabs are negative. CT scan returned showing a 5 mm stone in the right ureteral vesicular junction with moderate upstream hydroureteronephrosis. This is consistent with the patient's pain. She still pain free at this time. No signs of a UTI. At this time she is safe for discharge and she is agreeable to this plan. I will prescribe her oxycodone and Zofran through instymeds and tamsulosin to her pharmacy. She already has appointment scheduled with her primary care provider this Monday for checkup. She will speak to her PCP at this time if she has not passed a stone. Lab Data Labs: Lab Results 04/16/24 04/17/24 Range/Units 22:35 00:00 WBC 9.96 (4.50-11.00) K/uL RBC 4.61 (4.00-5.20) m/uL Hgb 12.1 (12.0-16.0) gm/dL Hct 38.8 (33.0-51.0) % MCV 84 (80-100) fL MCH 26 (26-34) pg MCHC 31 L (32-36) gm/dL RDW Coeff of Janna 14.3 (11.5-15.5) % Plt Count 292 (140-440) K/uL Neut % (Auto) 89.0 H (42.0-72.0) % Lymph % (Auto) 8.5 L (20-44) % [place] % (Auto) 2.1 (0.0-11.0) % Eos % (Auto) 0.1 (0.0-7.0) % Baso % (Auto) 0.3 (0.0-3.0) % Neut # (Auto) 8.90 H (1.7-7.0) K/uL Lymph # (Auto) 0.80 L (0.90-2.90) K/uL Stan[place] # (Auto) 0.20 (0.00-0.90) K/UL Eos # (Auto) 0.01 (0.00-0.50) K/uL Baso # (Auto) 0.03 (0.00-0.30) K/uL Abs Immat Gran (auto) 0.00 (0.00-0.30) K/uL Imm/Tot Granulo (auto) 0.0 % Sodium 136 (135-149) mmol/L Potassium 4.0 (3.6-5.1) mmol/L Chloride 101 (96-114) mmol/L Carbon Dioxide 22 (20-32) mmol/L Anion Gap 13 (7-15) mEq/L BUN 21 (5-24) mg/dL Creatinine 0.8 (0.5-1.5) mg/dL Estimated Creat Clear 91.21 Estimated GFR 104 ml/min Glucose 102 (60-115) mg/dL Calcium 9.6 (8.4-10.6) mg/dL Total Bilirubin 0.5 (0.1-1.5) mg/dL AST 28 (12-35) U/L ALT 29 (4-35) U/L Alkaline Phosphatase 89 (40-150) U/L Total Protein 7.8 (6.0-8.3) g/dL Albumin 4.7 (3.3-5.0) g/dL Urine Color Yellow (Yellow) Urine Appearance Clear (Clear) Urine pH 6.5 (5.0-8.5) Ur Specific [place] 1.010 (1.000-1.030) Urine Protein Negative (Negative) Urine Glucose (UA) Negative (Negative) Urine Ketones 2+ A (Negative) Urine Blood Trace-intact A (Negative) Urine Nitrite Negative (Negative) Urine Bilirubin Negative (Negative) Urine Urobilinogen 0.2 (0.2-1.0) Ur Leukocyte Esterase Negative (Negative) Urine RBC 0-2 (0-2) Urine WBC 0-2 (0-5) Ur Squamous Epith Cells Few (None-Few) Urine Bacteria None (None) SARS-CoV-2 (PCR) Negative SARS-CoV-2 (Negative) Influenza Type A (PCR) Negative PCR FLU A (Negative) Influenza Type B (PCR) Negative PCR FLU B (Negative) RSV (PCR) Negative PCR RSV (Negative) Discharge Plan Discharge Clinical Impression: Calculus of kidney Instructions: How to Strain Your Urine (ED) Additional Instructions: Strain your urine so you know when the stone passes. Take the oxycodone as needed for pain if Tylenol is not helping. Take Zofran as needed for nausea. Return to emergency department for new or worsening symptoms. Follow up with the primary care provider. Take the tamsulosin daily to help passed a stone. Prescriptions: New tamsulosin 0.4 mg capsule 0.4 mg PO DAILY Qty: 7 0RF No Action cholecalciferol (vitamin D3) 50 mcg (2,000 unit) capsule 50 mcg PO QDAY pren vit comb.1-iron cb-FA-DSS 90-1-50 mg tablet 1 tab PO DAILY ferrous sulfate [Feosol] 325 mg (65 mg iron) tablet 325 mg PO DAILY Follow Up/Referrals: Radha Bonilla DO [Primary Care Provider] - Stand Alone Forms: [employer] Info Instructions
--- NOTE | 2024-04-16 22:17 | CRLHL7_ITS ---
For Patients: As a result of the Century Cures Act, medical imaging exams and procedure reports are released immediately into your electronic medical record. You may view this report before your referring provider. If you have questions, please contact your health care provider. INDICATION: Right-sided abdominal pain. TECHNIQUE: CT abdomen and pelvis acquired with 82 cc Isovue 370 IV contrast. COMPARISON: None. FINDINGS: Lower chest: Unremarkable. Liver: Unremarkable. Normal in size and attenuation. No suspicious masses. Gallbladder and bile ducts: Unremarkable. No stones or inflammation. No biliary ductal dilatation. Spleen: Unremarkable. Normal in size. No masses. Adrenal glands: Unremarkable. No nodules. Pancreas: Unremarkable. No mass or inflammation. Kidneys: 5 mm calculus at the right ureterovesical junction. Moderate right hydroureteronephrosis. Delayed right nephrogram. Multiple nonobstructive renal calculi measuring up to 3 mm on the right and 4 mm on the left. GI tract: Unremarkable. Normal in caliber. No evidence of obstruction. Appendix is not well visualized, however there is no evidence of right lower quadrant inflammatory stranding. Lymph nodes: No lymphadenopathy. Vasculature: Unremarkable. Omentum/Peritoneum/Abdominal Wall: Unremarkable. No free air or significant free fluid. Pelvis: Unremarkable. Bones: Unremarkable for age. IMPRESSION: 1. 5 mm right ureterovesical junction calculus with moderate upstream hydroureteronephrosis. 2. Multiple bilateral nonobstructive nephrolithiasis. Please note that all CT scans at this facility use dose modulation, iterative reconstruction, and/or weight-based dosing when appropriate to reduce radiation dose to as low as reasonably achievable. Dictated by Ernesto Hopkins MD @ 04/17/2024 12:17:23 AM (Electronically Signed)
[2024-04-16 23:00] LABS: Albumin* 4.7 g/dL (3.3-5.0); Chloride* 101 mmol/L (96-114)
[2024-04-16 23:01] LABS: Sodium* 136 mmol/L (135-149)
[2024-04-16 23:03] LABS: Anion Gap 13 mEq/L (7-15); Aspartate Amino Transferase* 28 U/L (12-35); Bilirubin Total* 0.5 mg/dL (0.1-1.5); Carbon Dioxide* 22 mmol/L (20-32); Creatinine* 0.8 mg/dL (0.5-1.5); Est. Creatinine Clearance* 91.21; Estimated Glomerular Filt Rate 104 ml/min; Total Protein* 7.8 g/dL (6.0-8.3)
[2024-04-16 23:04] LABS: Alanine Aminotransferase* 29 U/L (4-35); Alkaline Phosphatase* 89 U/L (40-150); Basophils Absolute Auto 0.03 K/uL (0.00-0.30); Basophils Percent Auto 0.3 % (0.0-3.0); Blood Urea Nitrogen* 21 mg/dL (5-24); Calcium* 9.6 mg/dL (8.4-10.6); Eosinophils Absolute Auto 0.01 K/uL (0.00-0.50); Eosinophils Percent Auto 0.1 % (0.0-7.0); Glucose* 102 mg/dL (60-115); Hematocrit 38.8 % (33.0-51.0); Hemoglobin* 12.1 gm/dL (12.0-16.0); Lymphocytes Percent Auto 8.5 % (20-44); Mean Corpuscular HGB Conc 31 gm/dL (32-36); Mean Corpuscular Hemoglobin 26 pg (26-34); Mean Corpuscular Volume 84 fL (80-100); Monocytes Percent Auto 2.1 % (0.0-11.0); Platelet Count* 292 K/uL (140-440); RDW Coefficient of Variation % 14.3 % (11.5-15.5); Red Blood Count 4.61 m/uL (4.00-5.20); White Blood Count* 9.96 K/uL (4.50-11.00)
[2024-04-16 23:08] LABS: Slide Review Reflex No
[2024-04-16] MEDS: 0.9 % SODIUM CHLORIDE 500 ML 500 ML 1000 ML IV (23:15)
[2024-04-16 23:22] LABS: PCR FLU A Negative PCR FLU A (Negative); PCR FLU B Negative PCR FLU B (Negative); PCR RSV Negative PCR RSV (Negative); SARS PCR* Negative SARS-CoV-2 (Negative)
[2024-04-17 00:40] LABS: Appearance Urine Clear (Clear); Bilirubin Urine Negative (Negative); Blood Urine Trace-intact (Negative); Color Urine Yellow (Yellow); Glucose Urine Negative (Negative); Ketones Urine 2+ (Negative); Leukocyte Esterase Urine Negative (Negative); Nitrite Urine Negative (Negative); Protein Urine Negative (Negative); Urobilinogen Urine 0.2 (0.2-1.0); pH Urine 6.5 (5.0-8.5)
[2024-04-17 00:42] LABS: RBC Urine 0-2 (0-2); Squamous Epithelial Cell Urine Few (None-Few); WBC Urine 0-2 (0-5)
[2024-04-17] MEDS: TAMSULOSIN HCL 0.4 MG CAPSULE PO (00:58)
== END 2024-04-17 01:06 | disposition home or self-care (01) ==
PROVIDERS: Emergency Provider Student in an Organized Health Care Education/Training Program; PCP Family Medicine
DX: N20.0 Calculus of kidney (principal)
CPT/HCPCS: 36415; 74177; 76830; 76856; 80053; 81001; 85025; 87631; 93976; 96374; 96375; 99283; 99284; 99285; A9270; J7030; Q9967